=== PATIENT | male | born 1975 | race Two or more races ===

== ENCOUNTER → 2016-04-27 | Outpatient (REF) ==
--- NOTE | 2016-04-27 07:18 | DI ---
EXAM: CHEST FRONTAL AND LATERAL VIEWS HISTORY: [facility] routine screening. COMPARISON: 04/30/2014 FINDINGS: Heart size remains within normal limits. Lungs are clear and without suspicious opacitie s or obvious change since prior exam. Redemonstration of stabilization hardware of the left clavicl e. Subtle scoliosis is stable. IMPRESSION: No change since prior exam.
== END ==
LOC: RAD 06:39
DX: Z02.89 Encounter for other administrative examinations (principal)

== ENCOUNTER 2017-01-27 10:19 | Outpatient (CLI) | END 2017-01-27 10:20 | disposition home or self-care (01) | LOC: AMBL 10:19 | DX: R55 Syncope and collapse (principal); R42 Dizziness and giddiness; S01.412A Laceration without foreign body of left cheek and temporomandibular area, initial encounter; I95.9 Hypotension, unspecified; R20.0 Anesthesia of skin; R53.1 Weakness; R61 Generalized hyperhidrosis; W19.XXXA Unspecified fall, initial encounter ==